=== PATIENT | female | born 1985 | race American Indian/Alaskan Native ===

== ENCOUNTER 2017-04-12 23:42 | Emergency (ER) | payer MEDICARE ==
[2017-04-13 00:21] LABS: INR 0.96 (0.87-1.13)
[2017-04-13 00:22] LABS: Partial Thromboplastin Time 29.6 Sec. (24.2-36.6)
[2017-04-13 00:32] LABS: Anion Gap 20 mmol/L; BUN/Creatinine Ratio 18.75; Blood Urea Nitrogen 15 mg/dL (7-17); Calcium 9.7 mg/dL (8.4-10.2); Carbon Dioxide 24 mmol/L (22-30); Chloride 103.2 mmol/L (98-107); Glucose 87 mg/dL (65-100); Sodium 143 mmol/L (137-145)
[2017-04-13 00:53] LABS: Basophils % (Auto) 0.7 % (0.0-1.8); Eosinophils % (Auto) 2.2 % (0.0-4.3); Hematocrit 39.9 % (30.3-42.9); Hemoglobin 13.5 gm/dl (10.1-14.3); Mean Corpuscular HGB Conc 34 % (30-34); Mean Corpuscular Hemoglobin 32 pg (28-32); Mean Corpuscular Volume 96 fl (79-97); Platelet Count 249 K/mm3 (140-440); Red Blood Count 4.17 M/mm3 (3.65-5.03); Red Cell Distribution Width 13.9 % (13.2-15.2); White Blood Count 7.2 K/mm3 (4.5-11.0)
[2017-04-13 05:17] VITALS: BP 146/91
[2017-04-13] MEDS ORDERED: NORCO 5/325 PO ONE (05:30)
--- NOTE | 2017-04-18 14:28 | ED Elopement Review ---
ED Pt Elopement review - Results review Lab results: Laboratory Tests 04/12/17 04/12/17 04/12/17 23:56 23:56 23:56 WBC 7.2 RBC 4.17 Hgb 13.5 Hct 39.9 MCV 96 MCH 32 MCHC 34 RDW 13.9 Plt Count 249 Lymph % (Auto) 49.9 H [place] % (Auto) 7.7 H Eos % (Auto) 2.2 Baso % (Auto) 0.7 Lymph # 3.6 Worth # 0.6 Eos # 0.2 Baso # 0.0 Seg Neutrophils % 39.5 L Seg Neutrophils # 2.8 PT 12.7 INR 0.96 APTT 29.6 Sodium 143 Potassium 4.0 Chloride 103.2 Carbon Dioxide 24 Anion Gap 20 BUN 15 Creatinine 0.8 Estimated GFR > 60 BUN/Creatinine Ratio 18.75 Glucose 87 Calcium 9.7 Troponin T < 0.010 HCG, Qual 04/13/17 04/13/17 04/13/17 00:00 03:18 06:03 WBC RBC Hgb Hct MCV MCH MCHC RDW Plt Count Lymph % (Auto) [place] % (Auto) Eos % (Auto) Baso % (Auto) Lymph # [place] # Eos # Baso # Seg Neutrophils % Seg Neutrophils # PT INR APTT Sodium Potassium Chloride Carbon Dioxide Anion Gap BUN Creatinine Estimated GFR BUN/Creatinine Ratio Glucose Calcium Troponin T < 0.010 < 0.010 HCG, Qual Negative - Call Back decision Pt Call Back Decision: No action required
== END 2017-04-13 06:33 ==
LOC: ED 23:42
DX: R07.9 Chest pain, unspecified (principal); M54.2 Cervicalgia; Z53.21 Procedure and treatment not carried out due to patient leaving prior to being seen by health care provider
CPT/HCPCS: 36415; 80048; 84484; 84703; 85025; 85610; 85730; 93005; 93010

== ENCOUNTER 2017-04-22 23:37 | Emergency (ER) | payer MEDICARE | END 2017-04-23 04:30 | disposition left against medical advice (07) | LOC: ED 23:37 | DX: R51 Headache (principal); Z53.21 Procedure and treatment not carried out due to patient leaving prior to being seen by health care provider ==

== ENCOUNTER 2017-07-10 16:45 | Emergency (ER) | payer MEDICARE ==
[2017-07-10 16:55] VITALS: BP 145/104
[2017-07-10 17:26] LABS: Eosinophils % (Auto) 2.3 % (0.0-4.3); Hematocrit 43.2 % (30.3-42.9); Hemoglobin 14.7 gm/dl (10.1-14.3); Mean Corpuscular HGB Conc 34 % (30-34); Mean Corpuscular Hemoglobin 32 pg (28-32); Mean Corpuscular Volume 94 fl (79-97); Platelet Count 323 K/mm3 (140-440); Red Blood Count 4.58 M/mm3 (3.65-5.03); Red Cell Distribution Width 13.1 % (13.2-15.2); White Blood Count 6.1 K/mm3 (4.5-11.0)
[2017-07-10 17:39] LABS: Bacteria,Urine 1+ /HPF (Negative); Bilirubin,Urine NEG (Negative); Blood,Urine NEG (Negative); Ketones,Urine NEG (Negative); Leukocyte Esterase,Urine NEG (Negative); Mucus,Urine FEW /HPF; Nitrite,Urine NEG (Negative); Protein,Urine <15 mg/dL mg/dL (Negative); Urobilinogen,Urine < 2.0 mg/dL (<2.0)
[2017-07-10 17:40] LABS: Alanine Aminotransferase 13 units/L (7-56); Albumin 4.7 g/dL (3.9-5); Albumin/Globulin Ratio 1.5 %; Alkaline Phosphatase 91 units/L (35-129); Anion Gap 18 mmol/L; Blood Urea Nitrogen 12 mg/dL (7-17); Calcium 9.4 mg/dL (8.4-10.2); Carbon Dioxide 21 mmol/L (22-30); Chloride 106.9 mmol/L (98-107); Glucose 89 mg/dL (65-100); Lipase 137 units/L (13-60); Potassium 4.3 mmol/L (3.6-5.0); Sodium 142 mmol/L (137-145); Total Protein 7.9 g/dL (6.3-8.2)
[2017-07-10] MEDS ORDERED: DILAUDID IM ONE (18:51)
[2017-07-10] MEDS ORDERED: ZOFRAN IM ONE (18:57)
--- NOTE | 2017-07-10 19:03 | Emergency Department Report ---
HPI - General Chief Complaint: Abdominal Pain Time Seen by Provider: 07/10/17 18:50 - HPI HPI: 32-year-old -[place] female, presents to ED with epigastric discomfort, nausea, vomiting 3 today patient had had several similar episodes in the past. ED Past Medical Hx - Past Medical History Hx Hypertension: Yes Hx Diabetes: Yes (NIDDM) Hx GERD: Yes Hx Seizures: Yes Hx Kidney Stones: Yes Hx Psychiatric Treatment: Yes (BiPolar, Anxiety, Depression) Additional medical history: pancreatitis - Surgical History Additional Surgical History: Left little finger, Left Fallopian tube, - Social History Smoking Status: Current Every Day Smoker Substance Use Type: None - Medications Home Medications: Home Medications Medication Instructions Recorded Confirmed Last Taken Type Ciprofloxacin HCl [Ciprofloxacin 500 mg PO Q12H #14 tab 07/10/17 Unknown Rx TAB] Dicyclomine [Bentyl] 20 mg PO QID #20 tablet 07/10/17 Unknown Rx ED Review of Systems ROS: Stated complaint: PANCREATITIS Other details as noted in HPI Physical Exam - Physical Exam Vital Signs: Vital Signs 07/10/17 16:52 Temperature 97.9 F Pulse Rate 89 Respiratory 17 Rate Blood Pressure 145/104 O2 Sat by Pulse 100 Oximetry Physical Exam: GENERAL: The patient is well-developed well-nourished female HEENT: Normocephalic. Atraumatic. Extraocular motions are intact. Patient has moist mucous membranes. NECK: Supple. No meningitic signs are noted. There is no adenopathy noted. CHEST/LUNGS: Clear to auscultation. There is no respiratory distress noted. HEART/CARDIOVASCULAR: Regular. There is no tachycardia. There is no gallop rub or murmur. ABDOMEN: Abdomen is soft, nontender. Patient has normal bowel sounds. There is no abdominal distention. SKIN: There is no rash. There is no edema. There is no diaphoresis. There are abrasions overlying the fingers of the right hand. No lacerations NEURO: The patient is awake, alert, and oriented. The patient is cooperative. The patient has no focal neurologic deficits. The patient has normal speech and gait. Cranial nerves II through XII grossly intact, no drift. Negative Romberg ED Course Vital Signs 07/10/17 16:52 Temperature 97.9 F Pulse Rate 89 Respiratory 17 Rate Blood Pressure 145/104 O2 Sat by Pulse 100 Oximetry ED Medical Decision Making - Lab Data Result diagrams: 07/10/17 17:06 07/10/17 17:06 Critical care attestation.: If time is entered above; I have spent that time in minutes in the direct care of this critically ill patient, excluding procedure time. ED Disposition Clinical Impression: Abdominal pain Qualifiers: Abdominal location: generalized Qualified Code(s): R10.84 - Generalized abdominal pain UTI (urinary tract infection) Qualifiers: Urinary tract infection type: acute cystitis Hematuria presence: without hematuria Qualified Code(s): N30.00 - Acute cystitis without hematuria Disposition: - TO HOME OR SELFCARE Is pt being admited?: No Does the pt Need Aspirin: No Condition: Stable Instructions: Abdominal Pain (ED) Prescriptions: Ciprofloxacin HCl [Ciprofloxacin TAB] 500 mg PO Q12H #14 tab Dicyclomine [Bentyl] 20 mg PO QID #20 tablet Referrals: PRIMARY CARE [Primary Care Provider] - 3-5 Days
== END 2017-07-10 19:24 | disposition home or self-care (01) ==
LOC: ED 16:45
DX: N39.0 Urinary tract infection, site not specified (principal); E11.9 Type 2 diabetes mellitus without complications; K21.9 Gastro-esophageal reflux disease without esophagitis; F17.210 Nicotine dependence, cigarettes, uncomplicated
CPT/HCPCS: 36415; 80053; 81001; 83690; 84703; 85025; 96372; 99283; J1170; J2405

== ENCOUNTER 2017-07-13 01:40 | Emergency (ER) | payer MEDICARE ==
[2017-07-13 02:48] LABS: Basophils % (Auto) 1.3 % (0.0-1.8); Eosinophils % (Auto) 2.8 % (0.0-4.3); Hematocrit 43.9 % (30.3-42.9); Hemoglobin 15.1 gm/dl (10.1-14.3); Mean Corpuscular HGB Conc 35 % (30-34); Mean Corpuscular Hemoglobin 32 pg (28-32); Mean Corpuscular Volume 94 fl (79-97); Platelet Count 333 K/mm3 (140-440); Red Blood Count 4.68 M/mm3 (3.65-5.03); White Blood Count 7.4 K/mm3 (4.5-11.0)
[2017-07-13 03:11] LABS: Alanine Aminotransferase 16 units/L (7-56); Albumin 4.7 g/dL (3.9-5); Albumin/Globulin Ratio 1.4 %; Alkaline Phosphatase 89 units/L (35-129); Anion Gap 21 mmol/L; BUN/Creatinine Ratio 14.28; Blood Urea Nitrogen 10 mg/dL (7-17); Carbon Dioxide 21 mmol/L (22-30); Chloride 103.1 mmol/L (98-107); Glucose 90 mg/dL (65-100); Lipase 134 units/L (13-60); Potassium 3.9 mmol/L (3.6-5.0); Sodium 141 mmol/L (137-145)
[2017-07-13 05:25] LABS: Bacteria,Urine 1+ /HPF (Negative); Bilirubin,Urine NEG (Negative); Blood,Urine NEG (Negative); Ketones,Urine NEG (Negative); Leukocyte Esterase,Urine TR (Negative); Mucus,Urine FEW /HPF; Nitrite,Urine NEG (Negative); Protein,Urine <15 mg/dL mg/dL (Negative); Urobilinogen,Urine < 2.0 mg/dL (<2.0)
[2017-07-13 09:36] VITALS: BP 139/94
--- NOTE | 2017-07-13 10:17 | Emergency Department Report ---
ED Abdominal Pain HPI - General Chief Complaint: Abdominal Pain Stated Complaint: CP/ABD PAIN/VOMITING Time Seen by Provider: 07/13/17 10:16 Source: patient Mode of arrival: Ambulatory Limitations: No Limitations - History of Present Illness Initial Comments: Patient gives an unfocused and somewhat inaccurate history. She tells me that she's been having abdominal pain since yesterday. However as I reminded her that she was here on July 10 for similar complaints, the patient told me that in addition she was admitted to [facility] for the same complaint approximately one week ago. She stated she had endoscopy and imaging of her abdomen which did not show anything specific. She returns today with similar complaints of left upper quadrant pain. She states that she has vomited 3 times over the last 24 hours without any signs of hematemesis. She denied melena. She denied fever or chills. Apparently she has been actually having these symptoms for more than 2 weeks perhaps longer. She states she was seen by her primary care physician who told her to go to the ER because she had an elevated pancreas enzyme. She denies history of gallbladder disease. She states she has never been referred to a calibration specialist. MD Complaint: abdominal pain -: week(s) Location: [facility] Radiation: none Migration to: no migration Severity scale (0 -10): 7 Quality: aching Consistency: intermittent Improves With: nothing Worsens With: nothing Associated Symptoms: denies other symptoms (except as above described) - Related Data Previous Rx's Medication Instructions Recorded Last Taken Type Ciprofloxacin HCl [Ciprofloxacin 500 mg PO Q12H #14 tab 07/10/17 Unknown Rx TAB] Dicyclomine [Bentyl] 20 mg PO QID #20 tablet 07/10/17 Unknown Rx HYDROcodone/APAP 5-325 [[place] 1 each PO Q6HR PRN #10 tablet 07/13/17 Unknown Rx 5/325] Lansoprazole [Prevacid] 15 mg PO BID #30 cap 07/13/17 Unknown Rx Ondansetron [Zofran Odt] 4 mg PO Q6H PRN #10 tab.rapdis 07/13/17 Unknown Rx Allergies Allergy/AdvReac Type Severity Reaction Status Date / Time buprenorphine HCl Allergy Swelling Verified 04/12/17 23:53 [From Buprenex] tramadol Allergy Swelling Verified 04/12/17 23:53 ED Review of Systems ROS: Stated complaint: CP/ABD PAIN/VOMITING Other details as noted in HPI Constitutional: denies: chills, fever Eyes: denies: eye pain, eye discharge, vision change ENT: denies: ear pain, throat pain Respiratory: denies: cough, shortness of breath, wheezing Cardiovascular: denies: chest pain, palpitations Endocrine: no symptoms reported Gastrointestinal: as per HPI, abdominal pain, nausea, vomiting. denies: diarrhea Genitourinary: denies: urgency, dysuria, discharge Musculoskeletal: denies: back pain, joint swelling, arthralgia Skin: denies: rash, lesions Neurological: denies: headache, weakness, paresthesias Psychiatric: denies: anxiety, depression Hematological/Lymphatic: denies: easy bleeding, easy bruising ED Past Medical Hx - Past Medical History Hx Hypertension: Yes Hx Diabetes: Yes (NIDDM) Hx GERD: Yes Hx Seizures: Yes Hx Kidney Stones: Yes Hx Psychiatric Treatment: Yes (BiPolar, Anxiety, Depression) Additional medical history: pancreatitis - Surgical History Additional Surgical History: Left little finger, Left Fallopian tube, - Social History Smoking Status: Current Every Day Smoker Substance Use Type: Alcohol - Medications Home Medications: Home Medications Medication Instructions Recorded Confirmed Last Taken Type Ciprofloxacin HCl [Ciprofloxacin 500 mg PO Q12H #14 tab 07/10/17 Unknown Rx TAB] Dicyclomine [Bentyl] 20 mg PO QID #20 tablet 07/10/17 Unknown Rx HYDROcodone/APAP 5-325 [[place] 1 each PO Q6HR PRN #10 tablet 07/13/17 Unknown Rx 5/325] Lansoprazole [Prevacid] 15 mg PO BID #30 cap 07/13/17 Unknown Rx Ondansetron [Zofran Odt] 4 mg PO Q6H PRN #10 tab.rapdis 07/13/17 Unknown Rx ED Physical Exam - General Limitations: No Limitations General appearance: alert, in no apparent distress - Head Head exam: Present: atraumatic, normocephalic - Eye Eye exam: Present: normal appearance. Absent: scleral icterus - ENT ENT exam: Present: mucous membranes moist - Neck Neck exam: Present: normal inspection - Respiratory Respiratory exam: Present: normal lung sounds bilaterally. Absent: respiratory distress - Cardiovascular Cardiovascular Exam: Present: regular rate, normal rhythm. Absent: systolic murmur, diastolic murmur, rubs, gallop - GI/Abdominal GI/Abdominal exam: Present: soft, tenderness (minimal poorly localized discomfort to palpation epigastric area), normal bowel sounds. Absent: distended, guarding, rebound, rigid, organomegaly, mass, bruit, pulsatile mass, hernia - Extremities Exam Extremities exam: Present: normal inspection - Back Exam Back exam: Present: normal inspection - Neurological Exam Neurological exam: Present: alert, oriented X3, CN II-XII intact. Absent: motor sensory deficit - Psychiatric Psychiatric exam: Present: normal affect, normal mood - Skin Skin exam: Present: warm, dry, intact, normal color. Absent: rash ED Course Vital Signs 07/13/17 07/13/17 07/13/17 02:16 04:38 09:35 Temperature 98.2 F Pulse Rate 116 H 116 H 96 H Respiratory 16 18 16 Rate Blood Pressure 155/106 137/96 Blood Pressure 139/94 [Left] O2 Sat by Pulse 99 100 99 Oximetry - Reevaluation(s) Reevaluation #1: It is noted that the patient's allergies to raise the spectrum of chronic pain disorder. 07/13/17 11:28 ED Medical Decision Making - Lab Data Result diagrams: 07/13/17 02:32 07/13/17 02:32 Laboratory Results - last 24 hr 07/13/17 07/13/17 07/13/17 02:32 02:32 04:40 WBC 7.4 RBC 4.68 Hgb 15.1 H Hct 43.9 H MCV 94 MCH 32 MCHC 35 H RDW 13.0 L Plt Count 333 Lymph % (Auto) 53.7 H [place] % (Auto) 5.2 Eos % (Auto) 2.8 Baso % (Auto) 1.3 Lymph # 3.9 [place] # 0.4 Eos # 0.2 Baso # 0.1 Seg Neutrophils % 37.0 L Seg Neutrophils # 2.7 Sodium 141 Potassium 3.9 Chloride 103.1 Carbon Dioxide 21 L Anion Gap 21 BUN 10 Creatinine 0.7 Estimated GFR > 60 BUN/Creatinine Ratio 14.28 Glucose 90 Calcium 10.0 Total Bilirubin 0.20 AST 14 ALT 16 Alkaline Phosphatase 89 Troponin T < 0.010 Total Protein 8.0 Albumin 4.7 Albumin/Globulin Ratio 1.4 Lipase 134 H Urine Color Straw Urine Turbidity Clear Urine pH 6.0 Ur Specific [place] 1.010 Urine Protein <15 mg/dl Urine Glucose (UA) Neg Urine Ketones Neg Urine Blood Neg Urine Nitrite Neg Urine Bilirubin Neg Urine Urobilinogen < 2.0 Ur Leukocyte Esterase Tr Urine WBC (Auto) 4.0 Urine RBC (Auto) 1.0 U Epithel Cells (Auto) 8.0 Urine Bacteria (Auto) 1+ Urine Mucus Few Urine HCG, Qual Negative 07/13/17 05:36 WBC RBC Hgb Hct MCV MCH MCHC RDW Plt Count Lymph % (Auto) [place] % (Auto) Eos % (Auto) Baso % (Auto) Lymph # [place] # Eos # Baso # Seg Neutrophils % Seg Neutrophils # Sodium Potassium Chloride Carbon Dioxide Anion Gap BUN Creatinine Estimated GFR BUN/Creatinine Ratio Glucose Calcium Total Bilirubin AST ALT Alkaline Phosphatase Troponin T < 0.010 Total Protein Albumin Albumin/Globulin Ratio Lipase Urine Color Urine Turbidity Urine pH Ur Specific [place] Urine Protein Urine Glucose (UA) Urine Ketones Urine Blood Urine Nitrite Urine Bilirubin Urine Urobilinogen Ur Leukocyte Esterase Urine WBC (Auto) Urine RBC (Auto) U Epithel Cells (Auto) Urine Bacteria (Auto) Urine Mucus Urine HCG, Qual - EKG Data -: EKG Interpreted by Fl EKG shows normal: sinus rhythm, axis, intervals, QRS complexes - EKG Data Interpretation: nonspecific ST-T wave brittney (there are nonspecific inferolateral changes are not diagnostic of ischemia) - Radiology Data I do not see any indications for further imaging or workup at this time. The minimally elevated lipase is fairly nonspecific. The patient will be referred to [facility] and given a prescription for analgesia and a proton inhibitor/ antiemetic. Critical care attestation.: If time is entered above; I have spent that time in minutes in the direct care of this critically ill patient, excluding procedure time. ED Disposition Clinical Impression: Abdominal pain Qualifiers: Abdominal location: epigastric Qualified Code(s): R10.13 - Epigastric pain Disposition: - TO HOME OR SELFCARE Is pt being admited?: No Does the pt Need Aspirin: No Condition: Stable Instructions: Abdominal Pain (ED) Additional Instructions: Return any acute change or problem as needed. Follow-up with your primary care provider and gastroenterology. See referral. Prescriptions: HYDROcodone/APAP 5-325 [[place] 5/325] 1 each PO Q6HR PRN #10 tablet PRN Reason: Pain Lansoprazole [Prevacid] 15 mg PO BID #30 cap Ondansetron [Zofran Odt] 4 mg PO Q6H PRN #10 tab.rapdis PRN Reason: Nausea Referrals: RYLEY ZHENG MD [Primary Care Provider] - 3-5 Days [facility] [Provider Group] - 3-5 Days Time of Disposition: 11:26
[2017-07-13] MEDS ORDERED: MORPHINE IM ONE (11:15)
[2017-07-13] MEDS ORDERED: ZOFRAN ODT PO ONE (11:15)
== END 2017-07-13 11:40 | disposition home or self-care (01) ==
LOC: ED 01:40
DX: R10.12 Left upper quadrant pain (principal); R11.10 Vomiting, unspecified; I10 Essential (primary) hypertension; E11.9 Type 2 diabetes mellitus without complications; K21.9 Gastro-esophageal reflux disease without esophagitis; F17.210 Nicotine dependence, cigarettes, uncomplicated; Z88.8 Allergy status to other drugs, medicaments and biological substances
CPT/HCPCS: 36415; 80053; 81001; 81025; 83690; 84484; 85025; 93005; 93010; 96372; 99284; J2270; Q0162

== ENCOUNTER 2017-08-11 21:35 | Emergency (ER) | payer MEDICARE | END 2017-08-11 22:55 | disposition left against medical advice (07) | LOC: ED 21:35 | DX: K85.90 Acute pancreatitis without necrosis or infection, unspecified (principal); Z53.21 Procedure and treatment not carried out due to patient leaving prior to being seen by health care provider ==

== ENCOUNTER 2017-08-14 08:18 | Emergency (ER) | payer MEDICARE ==
[2017-08-14 10:17] LABS: Hematocrit 39.5 % (30.3-42.9); Hemoglobin 13.7 gm/dl (10.1-14.3); Mean Corpuscular HGB Conc 35 % (30-34); Mean Corpuscular Hemoglobin 33 pg (28-32); Mean Corpuscular Volume 94 fl (79-97); Platelet Count 285 K/mm3 (140-440); Red Blood Count 4.21 M/mm3 (3.65-5.03); Red Cell Distribution Width 13.2 % (13.2-15.2); White Blood Count 5.7 K/mm3 (4.5-11.0)
[2017-08-14 10:18] LABS: Anion Gap 17 mmol/L; Blood Urea Nitrogen 7 mg/dL (7-17); Calcium 8.9 mg/dL (8.4-10.2); Carbon Dioxide 23 mmol/L (22-30); Chloride 102.1 mmol/L (98-107); Glucose 106 mg/dL (65-100); Potassium 4.1 mmol/L (3.6-5.0); Sodium 138 mmol/L (137-145)
[2017-08-14] MEDS ORDERED: NORCO 10/325 PO ONE (10:42)
--- NOTE | 2017-08-14 10:42 | Emergency Department Report ---
ED General Adult HPI - General Chief complaint: Seizure Stated complaint: SEIZURE, AND CHEST PAIN Time Seen by Provider: 08/14/17 10:03 Source: patient Mode of arrival: Ambulatory Limitations: No Limitations - History of Present Illness Initial comments: Patient is a 32-year-old female past medical history of epilepsy who presents status post seizure. Patient states that she had a seizure around 3 AM this morning. She states that she didn't get enough sleep for the last couple days and she was afraid to go to sleep because she might have a seizure. Seizure occurred for a non-witnessed amount time. It was not witnessed by anyone. Patient is not postictal. She states that she has some head and chest pain. I had the chest pains is 6 out of 10 moving makes it worse and nothing makes it better. As an achy type of pain that does not radiate. Patient denies having any nausea vomiting or fevers. - Related Data Home Medications Medication Instructions Recorded Confirmed Last Taken ALPRAZolam [Xanax TAB] 1 mg PO TID PRN 08/14/17 08/14/17 08/13/17 Amitriptyline [Elavil] 100 mg PO HS 08/14/17 08/14/17 08/11/17 Duloxetine HCl [Cymbalta] 60 mg PO QAM 08/14/17 08/14/17 08/13/17 Lurasidone HCl [Latuda] 80 mg PO HS 08/14/17 08/14/17 08/13/17 Phenytoin [Dilantin] 100 mg PO TID 08/14/17 08/14/17 08/13/17 Topiramate [Topamax] 100 mg PO BID 08/14/17 08/14/17 08/13/17 lamoTRIgine [LaMICtal] 150 mg PO BID 08/14/17 08/14/17 08/13/17 metFORMIN XR [Glucophage XR] 500 mg PO BID 08/14/17 08/14/17 08/13/17 Allergies Allergy/AdvReac Type Severity Reaction Status Date / Time buprenorphine HCl Allergy Swelling Verified 04/12/17 23:53 [From Buprenex] tramadol Allergy Swelling Verified 04/12/17 23:53 ED Review of Systems ROS: Stated complaint: SEIZURE, AND CHEST PAIN Other details as noted in HPI Constitutional: denies: chills, fever Eyes: denies: eye pain, eye discharge, vision change ENT: denies: ear pain, throat pain Respiratory: denies: cough, shortness of breath, wheezing Cardiovascular: chest pain. denies: palpitations Endocrine: no symptoms reported Gastrointestinal: denies: abdominal pain, nausea, diarrhea Genitourinary: denies: urgency, dysuria, discharge Musculoskeletal: denies: back pain, joint swelling, arthralgia Skin: denies: rash, lesions Neurological: headache, other (seizures ). denies: weakness, paresthesias Psychiatric: denies: anxiety, depression Hematological/Lymphatic: denies: easy bleeding, easy bruising ED Past Medical Hx - Past Medical History Hx Hypertension: Yes Hx Diabetes: Yes (NIDDM) Hx GERD: Yes Hx Seizures: Yes Hx Kidney Stones: Yes Hx Psychiatric Treatment: Yes (BiPolar, Anxiety, Depression) Additional medical history: pancreatitis - Surgical History Past Surgical History?: Yes Additional Surgical History: Left little finger, Left Fallopian tube, - Social History Smoking Status: Never Smoker Substance Use Type: None - Medications Home Medications: Home Medications Medication Instructions Recorded Confirmed Last Taken Type ALPRAZolam [Xanax TAB] 1 mg PO TID PRN 08/14/17 08/14/17 08/13/17 History Amitriptyline [Elavil] 100 mg PO HS 08/14/17 08/14/17 08/11/17 History Duloxetine HCl [Cymbalta] 60 mg PO QAM 08/14/17 08/14/17 08/13/17 History Lurasidone HCl [Latuda] 80 mg PO HS 08/14/17 08/14/17 08/13/17 History Phenytoin [Dilantin] 100 mg PO TID 08/14/17 08/14/17 08/13/17 History Topiramate [Topamax] 100 mg PO BID 08/14/17 08/14/17 08/13/17 History lamoTRIgine [LaMICtal] 150 mg PO BID 08/14/17 08/14/17 08/13/17 History metFORMIN XR [Glucophage XR] 500 mg PO BID 08/14/17 08/14/17 08/13/17 History ED Physical Exam - General Limitations: No Limitations General appearance: alert, in no apparent distress - Head Head exam: Present: atraumatic, normocephalic - Eye Eye exam: Present: normal appearance - ENT ENT exam: Present: mucous membranes moist - Neck Neck exam: Present: normal inspection - Respiratory Respiratory exam: Present: normal lung sounds bilaterally. Absent: respiratory distress - Cardiovascular Cardiovascular Exam: Present: regular rate, normal rhythm. Absent: systolic murmur, diastolic murmur, rubs, gallop - GI/Abdominal GI/Abdominal exam: Present: soft, normal bowel sounds - Extremities Exam Extremities exam: Present: normal inspection - Back Exam Back exam: Present: normal inspection - Neurological Exam Neurological exam: Present: alert, oriented X3 - Psychiatric Psychiatric exam: Present: normal affect, normal mood - Skin Skin exam: Present: warm, dry, intact, normal color. Absent: rash ED Course Vital Signs 08/14/17 08/14/17 08/14/17 08:48 09:29 09:30 Temperature 97.9 F Pulse Rate 108 H 96 H Respiratory 18 16 Rate Blood Pressure 138/87 O2 Sat by Pulse 100 100 100 Oximetry 08/14/17 08/14/17 08/14/17 09:37 09:40 09:46 Temperature 97.5 F L Pulse Rate 91 H Respiratory 16 17 Rate Blood Pressure O2 Sat by Pulse 100 99 Oximetry 08/14/17 08/14/17 08/14/17 10:00 10:16 10:30 Temperature 98.1 F Pulse Rate 93 H 97 H 94 H Respiratory 16 20 16 Rate Blood Pressure 145/92 145/92 145/92 O2 Sat by Pulse Oximetry 08/14/17 10:46 Temperature Pulse Rate 91 H Respiratory 18 Rate Blood Pressure 145/92 O2 Sat by Pulse Oximetry ED Medical Decision Making - Lab Data Result diagrams: 08/14/17 09:33 08/14/17 09:33 Lab Results 08/14/17 08/14/17 08/14/17 Range/Units 08:59 09:33 09:33 WBC 5.7 (4.5-11.0) K/mm3 RBC 4.21 (3.65-5.03) M/mm3 Hgb 13.7 (10.1-14.3) gm/dl Hct 39.5 (30.3-42.9) % MCV 94 (79-97) fl MCH 33 H (28-32) pg MCHC 35 H (30-34) % RDW 13.2 (13.2-15.2) % Plt Count 285 (140-440) K/mm3 Lymph % (Auto) Strategy Specialist Add Manual Diff Complete Total Counted 100 Seg Neutrophils % Strategy Specialist Seg Neuts % (Manual) 38.0 L (40.0-70.0) % Band Neutrophils % 0 % Lymphocytes % (Manual) 55.0 H (13.4-35.0) % Reactive Lymphs % (Man) 1.0 % Monocytes % (Manual) 5.0 (0.0-7.3) % Eosinophils % (Manual) 1.0 (0.0-4.3) % Basophils % (Manual) 0 (0.0-1.8) % Metamyelocytes % 0 % Myelocytes % 0 % Promyelocytes % 0 % Blast Cells % 0 % Nucleated RBC % Not Reportable Seg Neutrophils # Man 2.2 (1.8-7.7) K/mm3 Band Neutrophils # 0.0 K/mm3 Lymphocytes # (Manual) 3.1 (1.2-5.4) K/mm3 Abs React Lymphs (Man) 0.1 K/mm3 Monocytes # (Manual) 0.3 (0.0-0.8) K/mm3 Eosinophils # (Manual) 0.1 (0.0-0.4) K/mm3 Basophils # (Manual) 0.0 (0.0-0.1) K/mm3 Metamyelocytes # 0.0 K/mm3 Myelocytes # 0.0 K/mm3 Promyelocytes # 0.0 K/mm3 Blast Cells # 0.0 K/mm3 WBC Morphology Not Reportable Hypersegmented Neuts Not Reportable Hyposegmented Neuts Not Reportable Hypogranular Neuts Not Reportable Smudge Cells Not Reportable Toxic Granulation Not Reportable Toxic Vacuolation Not Reportable Dohle Bodies Not Reportable Pelger-Huet Anomaly Not Reportable Galo Rods Not Reportable Platelet Estimate Appears normal Clumped Platelets Not Reportable Plt Clumps, EDTA Not Reportable Large Platelets Not Reportable Giant Platelets Rare Platelet Satelliting Not Reportable Plt Morphology Comment Not Reportable RBC Morphology Not Reportable Dimorphic RBCs Not Reportable Polychromasia Not Reportable Hypochromasia Not Reportable Poikilocytosis 1+ Anisocytosis 1+ Microcytosis Not Reportable Macrocytosis Not Reportable Spherocytes Not Reportable Pappenheimer Bodies Not Reportable Sickle Cells Not Reportable Target Cells Not Reportable Tear Drop Cells Not Reportable Ovalocytes Not Reportable Helmet Cells Not Reportable [place] Bodies Not Reportable [place] Rings Not Reportable [place] Cells 1+ Bite Cells Not Reportable Crenated Cell Few Elliptocytes Not Reportable Acanthocytes (Spur) Not Reportable Rouleaux Not Reportable Hemoglobin C Crystals Not Reportable Schistocytes Not Reportable Malaria parasites Not Reportable Maximiliano Bodies Not Reportable Hem Pathologist Commnt No Sodium 138 (137-145) mmol/L Potassium 4.1 (3.6-5.0) mmol/L Chloride 102.1 (98-107) mmol/L Carbon Dioxide 23 (22-30) mmol/L Anion Gap 17 mmol/L BUN 7 (7-17) mg/dL Creatinine 0.7 (0.7-1.2) mg/dL Estimated GFR > 60 ml/min BUN/Creatinine Ratio 10.00 % Glucose 106 H (65-100) mg/dL POC Glucose 102 (70-105) Calcium 8.9 (8.4-10.2) mg/dL HCG, Qual (Negative) 08/14/17 Range/Units 09:33 WBC (4.5-11.0) K/mm3 RBC (3.65-5.03) M/mm3 Hgb (10.1-14.3) gm/dl Hct (30.3-42.9) % MCV (79-97) fl MCH (28-32) pg MCHC (30-34) % RDW (13.2-15.2) % Plt Count (140-440) K/mm3 Lymph % (Auto) Add Manual Diff Total Counted Seg Neutrophils % Seg Neuts % (Manual) (40.0-70.0) % Band Neutrophils % % Lymphocytes % (Manual) (13.4-35.0) % Reactive Lymphs % (Man) % Monocytes % (Manual) (0.0-7.3) % Eosinophils % (Manual) (0.0-4.3) % Basophils % (Manual) (0.0-1.8) % Metamyelocytes % % Myelocytes % % Promyelocytes % % Blast Cells % % Nucleated RBC % Seg Neutrophils # Man (1.8-7.7) K/mm3 Band Neutrophils # K/mm3 Lymphocytes # (Manual) (1.2-5.4) K/mm3 Abs React Lymphs (Man) K/mm3 Monocytes # (Manual) (0.0-0.8) K/mm3 Eosinophils # (Manual) (0.0-0.4) K/mm3 Basophils # (Manual) (0.0-0.1) K/mm3 Metamyelocytes # K/mm3 Myelocytes # K/mm3 Promyelocytes # K/mm3 Blast Cells # K/mm3 WBC Morphology Hypersegmented Neuts Hyposegmented Neuts Hypogranular Neuts Smudge Cells Toxic Granulation Toxic Vacuolation Dohle Bodies Pelger-Huet Anomaly Galo Rods Platelet Estimate Clumped Platelets Plt Clumps, EDTA Large Platelets Giant Platelets Platelet Satelliting Plt Morphology Comment RBC Morphology Dimorphic RBCs Polychromasia Hypochromasia Poikilocytosis Anisocytosis Microcytosis Macrocytosis Spherocytes Pappenheimer Bodies Sickle Cells Target Cells Tear Drop Cells Ovalocytes Helmet Cells [place] Bodies [place] Rings [place] Cells Bite Cells Crenated Cell Elliptocytes Acanthocytes (Spur) Rouleaux Hemoglobin C Crystals Schistocytes Malaria parasites Maximiliano Bodies Hem Pathologist Commnt Sodium (137-145) mmol/L Potassium (3.6-5.0) mmol/L Chloride (98-107) mmol/L Carbon Dioxide (22-30) mmol/L Anion Gap mmol/L BUN (7-17) mg/dL Creatinine (0.7-1.2) mg/dL Estimated GFR ml/min BUN/Creatinine Ratio % Glucose (65-100) mg/dL POC Glucose (70-105) Calcium (8.4-10.2) mg/dL HCG, Qual Negative (Negative) - EKG Data -: EKG Interpreted by Wy - EKG Data 08/14/17 11:16 EKG shows normal sinus rhythm normal axis and no ST segment elevation or T-wave inversion - Medical Decision Making Chief medical diagnosis: Epilepsy Differential diagnosis: Non-adherance to medical regimen, metablolic abnormality , arrythmia I will get CBC, CMP, EKG and oral analgesic pain medication Patient's seizure is most likely due to her not getting enough sleep. Patient is not having any urinary signs or signs of infection she does not need a UA. Patient's laboratory finding is unremarkable I will send patient home. Agents pain is better after oral analgesic pain medication. Critical care attestation.: If time is entered above; I have spent that time in minutes in the direct care of this critically ill patient, excluding procedure time. ED Disposition Clinical Impression: Seizures Epilepsy Qualifiers: Epilepsy type: unspecified Intractability: not intractable Status epilepticus: without status epilepticus Qualified Code(s): G40.909 - Epilepsy, unspecified, not intractable, without status epilepticus Disposition: - TO HOME OR SELFCARE Is pt being admited?: No Does the pt Need Aspirin: No Condition: Stable Instructions: Epilepsy (ED) Referrals: PRIMARY CARE, [Primary Care Provider] - 3-5 Days Forms: Accompanied Note
[2017-08-14 10:53] LABS: Basophils % (Manual) 0 % (0.0-1.8); Blastocytes % (Manual) 0 %
[2017-08-14 10:54] LABS: Anisocytosis 1+; Burr Cells 1+; Crenated RBC Few; Diff Status Complete; Giant Platelets Rare; Poikilocytosis 1+
[2017-08-14] MEDS ORDERED: MOTRIN PO ONE ×2 (11:10→11:59)
[2017-08-14 11:53] VITALS: BP 150/101
== END 2017-08-14 11:15 | disposition home or self-care (01) ==
LOC: ED 08:18
DX: G40.909 Epilepsy, unspecified, not intractable, without status epilepticus (principal); E11.9 Type 2 diabetes mellitus without complications; K21.9 Gastro-esophageal reflux disease without esophagitis; F31.9 Bipolar disorder, unspecified; F41.9 Anxiety disorder, unspecified; Z88.8 Allergy status to other drugs, medicaments and biological substances
CPT/HCPCS: 36415; 80048; 80185; 82962; 84703; 85007; 85025; 93005; 93010

== ENCOUNTER 2017-08-24 03:17 | Emergency (ER) | payer MEDICARE ==
[2017-08-24 03:26] VITALS: BP 114/76
[2017-08-24 04:31] LABS: Basophils % (Auto) 1.1 % (0.0-1.8); Eosinophils % (Auto) 3.6 % (0.0-4.3); Hematocrit 38.5 % (30.3-42.9); Hemoglobin 13.5 gm/dl (10.1-14.3); Mean Corpuscular HGB Conc 35 % (30-34); Mean Corpuscular Hemoglobin 33 pg (28-32); Mean Corpuscular Volume 93 fl (79-97); Platelet Count 229 K/mm3 (140-440); Red Blood Count 4.13 M/mm3 (3.65-5.03); Red Cell Distribution Width 13.5 % (13.2-15.2); White Blood Count 6.9 K/mm3 (4.5-11.0)
[2017-08-24 04:36] LABS: Anion Gap 16 mmol/L; BUN/Creatinine Ratio 10; Blood Urea Nitrogen 7 mg/dL (7-17); Calcium 9.5 mg/dL (8.4-10.2); Carbon Dioxide 23 mmol/L (22-30); Chloride 108.3 mmol/L (98-107); Glucose 118 mg/dL (65-100); Sodium 143 mmol/L (137-145)
== END 2017-08-24 05:25 | disposition left against medical advice (07) ==
LOC: ED 03:17
DX: R07.9 Chest pain, unspecified (principal); Z53.21 Procedure and treatment not carried out due to patient leaving prior to being seen by health care provider
CPT/HCPCS: 36415; 80048; 84484; 84703; 85025; 93005; 93010

== ENCOUNTER 2018-02-19 21:57 | Emergency (ER) | payer MEDICARE ==
[2018-02-20 00:30] LABS: Basophils # (Auto) 0.1 K/mm3 (0.0-0.1); Basophils % (Auto) 0.9 % (0.0-1.8); Eosinophils # (Auto) 0.1 K/mm3 (0.0-0.4); Eosinophils % (Auto) 1.8 % (0.0-4.3); Hematocrit 43.1 % (30.3-42.9); Hemoglobin 14.4 gm/dl (10.1-14.3); Lymphocytes # (Auto) 3.1 K/mm3 (1.2-5.4); Lymphocytes % (Auto) 46.1 % (13.4-35.0); Mean Corpuscular HGB Conc 33 % (30-34); Mean Corpuscular Hemoglobin 32 pg (28-32); Mean Corpuscular Volume 95 fl (79-97); Monocytes # (Auto) 0.5 K/mm3 (0.0-0.8); Monocytes % (Auto) 6.9 % (0.0-7.3); Platelet Count 296 K/mm3 (140-440); Red Blood Count 4.56 M/mm3 (3.65-5.03); Red Cell Distribution Width 14.1 % (13.2-15.2)
[2018-02-20 00:45] LABS: Alanine Aminotransferase 15 units/L (7-56); Albumin 4.4 g/dL (3.9-5); BUN/Creatinine Ratio 10; Blood Urea Nitrogen 10 mg/dL (7-17); Hemolysis Index 7; Lipase 77 units/L (13-60)
[2018-02-20 00:48] LABS: Bilirubin,Urine NEG (Negative); Blood,Urine LG (Negative); Color,Urine Red (Yellow); Urobilinogen,Urine < 2.0 mg/dL (<2.0)
[2018-02-20 00:50] LABS: RBC,Urine > 182.0 /HPF (0.0-6.0); WBC,Urine > 182.0 /HPF (0.0-6.0)
[2018-02-20] MEDS ORDERED: NACL 0.9% 1000 ML 1,000 ML IV ONE (02:40)
[2018-02-20] MEDS ORDERED: DILAUDID IV ONE ×2 (02:46→05:56)
[2018-02-20] MEDS ORDERED: ZOFRAN IV ONE (02:46)
[2018-02-20 02:56] VITALS: BP 165/111
--- NOTE | 2018-02-20 05:16 | Cat Scan Report ---
FINAL REPORT EXAM: CT ABDOMEN PELVIS W CON HISTORY: Abdominal pain. TECHNIQUE: Axial CT images of the abdomen and pelvis were obtained, following the administration of intravenous contrast. Delayed axial images and coronal and sagittal reformatted images were also obtained. No prior studies are available for comparison. FINDINGS: There is a 1.8 cm patchy enhancing lesion in the left lateral hepatic lobe, which appears low-attenuation relative to adjacent parenchyma on the delayed images. The biliary tree, gallbladder, pancreas, spleen, adrenal glands, and kidneys are unremarkable. There is no urinary tract obstruction. Evaluation of the bowel is limited due to lack of oral contrast. The stomach is partially contracted, not well evaluated. There is residual stool in the colon. There is no intestinal obstruction or free air. Of note, the appendix is normal. There is a tiny fat containing right periumbilical ventral hernia. The abdominal aorta is normal in caliber. There is no pathologic abdominal or pelvic lymphadenopathy. There is no free or loculated fluid collection. The uterus and adnexa demonstrate a grossly normal CT appearance for patient's age, with mild cystic changes seen in the left ovary. The urinary bladder is unremarkable. No discrete osseous abnormality is seen. There is minimal subsegmental dependent atelectasis. IMPRESSION: 1. No intestinal obstruction or free air. Normal CT appearance of the appendix. 2. 1.8 cm patchy enhancing lesion in the left lateral hepatic lobe, not fully characterized (but does not have typical CT features of hemangioma). MRI exam with and without contrast is suggested for further evaluation.
--- NOTE | 2018-02-20 05:33 | Emergency Department Report ---
HPI - General Chief Complaint: Abdominal Pain Time Seen by Provider: 02/20/18 02:25 - HPI HPI: 33-year-old -[place] female presents ED with epigastric area pain, 8/ 10 , burning/sharp without radiation. She denies history of pancreatitis and came to ED to make sure that she was not having a pancreatitis attack. Patient denies any fever, chills, night sweats. Patient also complained of mild burning on urination, no vaginal bleeding or discharge. ED Past Medical Hx - Past Medical History Hx Hypertension: Yes Hx Diabetes: Yes (NIDDM) Hx GERD: Yes Hx Seizures: Yes Hx Kidney Stones: Yes Hx Psychiatric Treatment: Yes (BiPolar, Anxiety, Depression) Additional medical history: pancreatitis - Surgical History Additional Surgical History: Left little finger, Left Fallopian tube, - Social History Smoking Status: Current Some Day Smoker Substance Use Type: None - Medications Home Medications: Home Medications Medication Instructions Recorded Confirmed Last Taken Type ALPRAZolam [Xanax TAB] 1 mg PO TID PRN 08/14/17 08/14/17 08/13/17 History Amitriptyline [Elavil] 100 mg PO HS 08/14/17 08/14/17 08/11/17 History Duloxetine HCl [Cymbalta] 60 mg PO QAM 08/14/17 08/14/17 08/13/17 History Lurasidone HCl [Latuda] 80 mg PO HS 08/14/17 08/14/17 08/13/17 History Phenytoin [Dilantin] 100 mg PO TID 08/14/17 08/14/17 08/13/17 History Topiramate [Topamax] 100 mg PO BID 08/14/17 08/14/17 08/13/17 History lamoTRIgine [LaMICtal] 150 mg PO BID 08/14/17 08/14/17 08/13/17 History metFORMIN XR [Glucophage XR] 500 mg PO BID 08/14/17 08/14/17 08/13/17 History Cephalexin [Keflex] 500 mg PO Q12HR #14 cap 02/20/18 Unknown Rx ED Review of Systems ROS: Stated complaint: H/A; ABD PAIN Other details as noted in HPI Comment: All other systems reviewed and negative Gastrointestinal: abdominal pain, nausea. denies: diarrhea, constipation Physical Exam - Physical Exam Vital Signs: Vital Signs 02/19/18 02/20/18 02/20/18 23:33 01:44 01:46 Temperature 99 F Pulse Rate 109 H Blood Pressure 132/81 174/111 O2 Sat by Pulse 96 99 97 Oximetry 02/20/18 02:00 Temperature Pulse Rate Blood Pressure 165/111 O2 Sat by Pulse 98 Oximetry Physical Exam: - Physical Exam Physical Exam: - General Limitations: No Limitations General appearance: alert, in no apparent distress. - Head Head exam: Present: atraumatic, normocephalic - Eye Eye exam: Present: normal appearance - ENT ENT exam: Present: mucous membranes moist - Neck Neck exam: Present: normal inspection - Respiratory Respiratory exam: Present: normal lung sounds bilaterally. Absent: respiratory distress - Cardiovascular Cardiovascular Exam: Present: normal rhythm, tachycardia. Absent: systolic murmur, diastolic murmur, rubs, gallop - GI/Abdominal GI/Abdominal exam: Present: soft, normal bowel sounds, mild tender to palpation right upper quadrant area - Extremities Exam Extremities exam: Present: normal inspection - Back Exam Back exam: Present: normal inspection - Neurological Exam Neurological exam: Present: alert, oriented X3 - Psychiatric Psychiatric exam: normal affect and mood - Skin Skin exam: Present: warm, dry, intact, normal color. Absent: rash ED Course Vital Signs 02/19/18 02/20/18 02/20/18 23:33 01:44 01:46 Temperature 99 F Pulse Rate 109 H Blood Pressure 132/81 174/111 O2 Sat by Pulse 96 99 97 Oximetry 02/20/18 02:00 Temperature Pulse Rate Blood Pressure 165/111 O2 Sat by Pulse 98 Oximetry ED Medical Decision Making - Lab Data Result diagrams: 02/19/18 23:40 02/19/18 23:40 Critical care attestation.: If time is entered above; I have spent that time in minutes in the direct care of this critically ill patient, excluding procedure time. ED Disposition Clinical Impression: Abdominal pain Qualifiers: Abdominal location: right upper quadrant Qualified Code(s): R10.11 - Right upper quadrant pain UTI (urinary tract infection) Qualifiers: Urinary tract infection type: acute cystitis Hematuria presence: without hematuria Qualified Code(s): N30.00 - Acute cystitis without hematuria Disposition: - TO HOME OR SELFCARE Is pt being admited?: No Does the pt Need Aspirin: No Condition: Stable Instructions: Abdominal Pain (ED) Prescriptions: Cephalexin [Keflex] 500 mg PO Q12HR #14 cap Referrals: MYLA SLOAN MD [Primary Care Provider] - 3-5 Days
[2018-02-20] MEDS ORDERED: TORADOL IV ONE (05:51)
[2018-02-20] MEDS ORDERED: DILAUDID ONE (05:58)
== END 2018-02-20 06:05 | disposition home or self-care (01) ==
LOC: ED 21:57
DX: N39.0 Urinary tract infection, site not specified (principal); R10.11 Right upper quadrant pain; I10 Essential (primary) hypertension; E11.9 Type 2 diabetes mellitus without complications; K21.9 Gastro-esophageal reflux disease without esophagitis; F31.9 Bipolar disorder, unspecified; F41.9 Anxiety disorder, unspecified; F17.200 Nicotine dependence, unspecified, uncomplicated; Z87.442 Personal history of urinary calculi
CPT/HCPCS: 36415; 74177; 80053; 81001; 83690; 84703; 85025; 96361; 96374; 96375; 96376; 99284; J1170; J1885; J2405; J7030; Q9967

== ENCOUNTER 2018-02-25 06:40 | Emergency (ER) | payer MEDICARE ==
[2018-02-25 07:32] LABS: Hematocrit 45.6 % (30.3-42.9); Hemoglobin 15.6 gm/dl (10.1-14.3); Mean Corpuscular HGB Conc 34 % (30-34); Mean Corpuscular Hemoglobin 32 pg (28-32); Mean Corpuscular Volume 93 fl (79-97); Platelet Count 354 K/mm3 (140-440); Red Blood Count 4.88 M/mm3 (3.65-5.03); Red Cell Distribution Width 14.1 % (13.2-15.2)
[2018-02-25 07:35] LABS: Bacteria,Urine 1+ /HPF (Negative); Bilirubin,Urine NEG (Negative); Blood,Urine NEG (Negative); Color,Urine Yellow (Yellow); Mucus,Urine FEW /HPF; Protein,Urine <15 mg/dL mg/dL (Negative); Urobilinogen,Urine < 2.0 mg/dL (<2.0)
[2018-02-25 07:41] LABS: Alanine Aminotransferase 18 units/L (7-56); Albumin 4.5 g/dL (3.9-5); BUN/Creatinine Ratio 13; Blood Urea Nitrogen 10 mg/dL (7-17); Calcium 9.8 mg/dL (8.4-10.2); Hemolysis Index 43
[2018-02-25 08:30] LABS: Anisocytosis 1+; Band Neutrophils # (Manual) 0.2 K/mm3; Basophils % (Manual) 0 % (0.0-1.8); Total Cells Counted 100
[2018-02-25 08:31] LABS: Large Platelets Rare; Platelet Estimate Consistent w Auto
[2018-02-25] MEDS ORDERED: ZOFRAN IV ONE (09:49)
[2018-02-25] MEDS ORDERED: NACL 0.9% 1000 ML 1,000 ML IV ONE (09:50)
[2018-02-25 09:51] VITALS: BP 150/99
[2018-02-25] MEDS ORDERED: SUBLIMAZE IV ONE (10:22)
--- NOTE | 2018-02-25 10:28 | Emergency Department Report ---
HPI - General Chief Complaint: Abdominal Pain Time Seen by Provider: 02/25/18 10:15 - HPI HPI: Room 8 The patient is a 33-year-old female presenting with a chief complaint of abdominal pain. The patient says she developed midepigastric abdominal pain starting last night at approximately 21:00. Patient states the pain is constant and stabbing in nature and feels like previous pulse pancreatitis. Patient denies diarrhea or fever. Patient admits to nausea and vomiting. The patient gives her pain score of 8/10 Location: Abdomen Duration: Constant since 21:00 Quality: Stabbing Severity: 8/10 Modifying factors: [see above] Context: [see above] Mode of transportation: [not driving] ED Past Medical Hx - Past Medical History Previous Medical History?: Yes Hx Hypertension: Yes Hx Diabetes: Yes (NIDDM) Hx GERD: Yes Hx Seizures: Yes Hx Kidney Stones: Yes Hx Psychiatric Treatment: Yes (BiPolar, Anxiety, Depression) Additional medical history: pancreatitis - Surgical History Past Surgical History?: Yes Additional Surgical History: pin and screw L 5th digit, L ectopic 2015 , D&C - Family History Family history: no significant - Social History Smoking Status: Current Every Day Smoker (1/2 pack per day) Substance Use Type: None (denies illicit drug use), Alcohol (none since 2017) - Medications Home Medications: Home Medications Medication Instructions Recorded Confirmed Last Taken Type ALPRAZolam [Xanax TAB] 1 mg PO TID PRN 08/14/17 08/14/17 08/13/17 History Amitriptyline [Elavil] 100 mg PO HS 08/14/17 08/14/17 08/11/17 History Duloxetine HCl [Cymbalta] 60 mg PO QAM 08/14/17 08/14/17 08/13/17 History Lurasidone HCl [Latuda] 80 mg PO HS 08/14/17 08/14/17 08/13/17 History Phenytoin [Dilantin] 100 mg PO TID 08/14/17 08/14/17 08/13/17 History Topiramate [Topamax] 100 mg PO BID 08/14/17 08/14/17 08/13/17 History lamoTRIgine [LaMICtal] 150 mg PO BID 08/14/17 08/14/17 08/13/17 History metFORMIN XR [Glucophage XR] 500 mg PO BID 08/14/17 08/14/17 08/13/17 History Cephalexin [Keflex] 500 mg PO Q12HR #14 cap 02/20/18 Unknown Rx Dicyclomine [Bentyl] 10 mg PO QID #30 capsule 02/20/18 Unknown Rx Famotidine [Pepcid] 20 mg PO BID #20 tablet 02/25/18 Unknown Rx HYDROcodone/APAP 5-325 [[place] 1 - 2 each PO Q6HR PRN #14 tablet 02/25/18 Unknown Rx 5/325] Promethazine [Phenergan TAB] 25 mg PO Q6HR PRN #20 tab 02/25/18 Unknown Rx Promethazine [Phenergan] 25 mg FL Q6HR PRN #5 supp.rect 02/25/18 Unknown Rx ED Review of Systems ROS: Stated complaint: PANCREATITIS FLARE UP/MIGRAINE Other details as noted in HPI Constitutional: denies: fever Gastrointestinal: abdominal pain, nausea, vomiting. denies: diarrhea Physical Exam - Physical Exam Vital Signs: Vital Signs 02/25/18 02/25/18 02/25/18 06:52 09:27 09:51 Temperature 98.1 F Pulse Rate 76 103 H Respiratory 18 18 Rate Blood Pressure 176/119 145/105 Blood Pressure 150/99 [Right] O2 Sat by Pulse 96 98 Oximetry Physical Exam: GENERAL: The patient is well-developed well-nourished female lying on stretcher not appearing to be in acute distress. [] HEENT: Normocephalic. Atraumatic. Extraocular motions are intact. Patient has moist mucous membranes. NECK: Supple. Trachea midline CHEST/LUNGS: Clear to auscultation. There is no respiratory distress noted. HEART/CARDIOVASCULAR: Regular. There is no tachycardia. There is no gallop rub or murmur. ABDOMEN: Abdomen is soft, with tenderness to palpation in the epigastric region. Patient has normal bowel sounds. There is no abdominal distention. SKIN: There is no rash. There is no edema. There is no diaphoresis. NEURO: The patient is awake, alert, and oriented. The patient is cooperative. The patient has normal speech MUSCULOSKELETAL: There is no evidence of acute injury. ED Course Vital Signs 02/25/18 02/25/18 02/25/18 06:52 09:27 09:51 Temperature 98.1 F Pulse Rate 76 103 H Respiratory 18 18 Rate Blood Pressure 176/119 145/105 Blood Pressure 150/99 [Right] O2 Sat by Pulse 96 98 Oximetry - Reevaluation(s) Reevaluation #1: 02/25/18 10:57 Patient states her pain is decreased to a 6/10. Labs were reviewed with the patient. The patient states she would prefer to go home when given the option of admission to the hospital for pain control. Patient advised to follow-up with her psychiatric assistant (Dr. Ray) ED Medical Decision Making - Lab Data Result diagrams: 02/25/18 07:06 02/25/18 07:06 Laboratory Tests 02/25/18 02/25/18 02/25/18 07:06 07:06 07:06 WBC 6.2 RBC 4.88 Hgb 15.6 H Hct 45.6 H MCV 93 MCH 32 MCHC 34 RDW 14.1 Plt Count 354 Lymph % (Auto) Log Yard Derrick Operator Add Manual Diff Complete Total Counted 100 Seg Neutrophils % Log Yard Derrick Operator Seg Neuts % (Manual) 30.0 L Band Neutrophils % 3.0 Lymphocytes % (Manual) 56.0 H Reactive Lymphs % (Man) 0 Monocytes % (Manual) 7.0 Eosinophils % (Manual) 4.0 Basophils % (Manual) 0 Metamyelocytes % 0 Myelocytes % 0 Promyelocytes % 0 Blast Cells % 0 Nucleated RBC % Not Reportable Seg Neutrophils # Man 1.9 Band Neutrophils # 0.2 Lymphocytes # (Manual) 3.5 Abs React Lymphs (Man) 0.0 Monocytes # (Manual) 0.4 Eosinophils # (Manual) 0.2 Basophils # (Manual) 0.0 Metamyelocytes # 0.0 Myelocytes # 0.0 Promyelocytes # 0.0 Blast Cells # 0.0 WBC Morphology Not Reportable Hypersegmented Neuts Not Reportable Hyposegmented Neuts Not Reportable Hypogranular Neuts Not Reportable Smudge Cells Not Reportable Toxic Granulation Not Reportable Toxic Vacuolation Not Reportable Dohle Bodies Not Reportable Pelger-Huet Anomaly Not Reportable Galo Rods Not Reportable Platelet Estimate Consistent w auto Clumped Platelets Not Reportable Plt Clumps, EDTA Not Reportable Large Platelets Rare Giant Platelets Not Reportable Platelet Satelliting Not Reportable Plt Morphology Comment Not Reportable RBC Morphology Not Reportable Dimorphic RBCs Not Reportable Polychromasia Not Reportable Hypochromasia Not Reportable Poikilocytosis Not Reportable Anisocytosis 1+ Microcytosis Not Reportable Macrocytosis Not Reportable Spherocytes Not Reportable Pappenheimer Bodies Not Reportable Sickle Cells Not Reportable Target Cells Not Reportable Tear Drop Cells Not Reportable Ovalocytes Not Reportable Helmet Cells Not Reportable Heart-Keizer Bodies Not Reportable [place] Rings Not Reportable [place] Cells Not Reportable Bite Cells Not Reportable Crenated Cell Not Reportable Elliptocytes Not Reportable Acanthocytes (Spur) Not Reportable Rouleaux Not Reportable Hemoglobin C Crystals Not Reportable Schistocytes Not Reportable Malaria parasites Not Reportable Maximiliano Bodies Not Reportable Hem Pathologist Commnt No Sodium 139 Potassium 4.2 Chloride 98.6 Carbon Dioxide 28 Anion Gap 17 BUN 10 Creatinine 0.8 Estimated GFR > 60 BUN/Creatinine Ratio 13 Glucose 107 H Calcium 9.8 Total Bilirubin < 0.20 AST 17 ALT 18 Alkaline Phosphatase 90 Total Protein 7.5 Albumin 4.5 Albumin/Globulin Ratio 1.5 Lipase 50 Urine Color Urine Turbidity Urine pH Ur Specific [place] Urine Protein Urine Glucose (UA) Urine Ketones Urine Blood Urine Nitrite Urine Bilirubin Urine Urobilinogen Ur Leukocyte Esterase Urine WBC (Auto) Urine RBC (Auto) U Epithel Cells (Auto) Urine Bacteria (Auto) Urine Mucus 02/25/18 07:21 WBC RBC Hgb Hct MCV MCH MCHC RDW Plt Count Lymph % (Auto) Add Manual Diff Total Counted Seg Neutrophils % Seg Neuts % (Manual) Band Neutrophils % Lymphocytes % (Manual) Reactive Lymphs % (Man) Monocytes % (Manual) Eosinophils % (Manual) Basophils % (Manual) Metamyelocytes % Myelocytes % Promyelocytes % Blast Cells % Nucleated RBC % Seg Neutrophils # Man Band Neutrophils # Lymphocytes # (Manual) Abs React Lymphs (Man) Monocytes # (Manual) Eosinophils # (Manual) Basophils # (Manual) Metamyelocytes # Myelocytes # Promyelocytes # Blast Cells # WBC Morphology Hypersegmented Neuts Hyposegmented Neuts Hypogranular Neuts Smudge Cells Toxic Granulation Toxic Vacuolation Dohle Bodies Pelger-Huet Anomaly Galo Rods Platelet Estimate Clumped Platelets Plt Clumps, EDTA Large Platelets Giant Platelets Platelet Satelliting Plt Morphology Comment RBC Morphology Dimorphic RBCs Polychromasia Hypochromasia Poikilocytosis Anisocytosis Microcytosis Macrocytosis Spherocytes Pappenheimer Bodies Sickle Cells Target Cells Tear Drop Cells Ovalocytes Helmet Cells Heart-Keizer Bodies [place] Rings [place] Cells Bite Cells Crenated Cell Elliptocytes Acanthocytes (Spur) Rouleaux Hemoglobin C Crystals Schistocytes Malaria parasites Maximiliano Bodies Hem Pathologist Commnt Sodium Potassium Chloride Carbon Dioxide Anion Gap BUN Creatinine Estimated GFR BUN/Creatinine Ratio Glucose Calcium Total Bilirubin AST ALT Alkaline Phosphatase Total Protein Albumin Albumin/Globulin Ratio Lipase Urine Color Yellow Urine Turbidity Clear Urine pH 5.0 Ur Specific [place] 1.012 Urine Protein <15 mg/dl Urine Glucose (UA) Neg Urine Ketones Neg Urine Blood Neg Urine Nitrite Neg Urine Bilirubin Neg Urine Urobilinogen < 2.0 Ur Leukocyte Esterase Tr Urine WBC (Auto) 2.0 Urine RBC (Auto) 4.0 U Epithel Cells (Auto) 5.0 Urine Bacteria (Auto) 1+ Urine Mucus Few - Radiology Data Radiology results: report reviewed (acute abdominal series x-ray), image reviewed (acute abdominal series x-ray) interpreted by me: Acute abdominal series x-ray-no free air - Differential Diagnosis acute pancreatitis, gastritis, peptic ulcer disease Critical care attestation.: If time is entered above; I have spent that time in minutes in the direct care of this critically ill patient, excluding procedure time. ED Disposition Clinical Impression: Acute abdominal pain, Chronic pancreatitis Disposition: TO HOME OR SELFCARE Is pt being admited?: No Does the pt Need Aspirin: No Condition: Stable Instructions: Abdominal Pain (ED), Pancreatitis (ED) Additional Instructions: Return to the emergency department immediately should you develop worsening symptoms, fever, inability to tolerate food or liquid or any other concerns. Prescriptions: Famotidine [Pepcid] 20 mg PO BID #20 tablet HYDROcodone/APAP 5-325 [[place] 5/325] 1 - 2 each PO Q6HR PRN #14 tablet PRN Reason: Pain Promethazine [Phenergan TAB] 25 mg PO Q6HR PRN #20 tab PRN Reason: Nausea Promethazine [Phenergan] 25 mg FL Q6HR PRN #5 supp.rect PRN Reason: Vomiting Referrals: RYLEY ZHENG MD [Primary Care Provider] - 3-[address] Ray, marilee psychiatric assistant [Other] - [facility] Time of Disposition: 11:00
--- NOTE | 2018-02-25 10:49 | XRay Report ---
ABDOMINAL SERIES INDICATION: Abdominal pain. COMPARISON: 02/20/2018 CT. FINDINGS: Abdominal series, 4 radiographs, demonstrate nonobstructive bowel gas pattern without focal suspicious calcifications, pneumatosis or pneumoperitoneum. Ascending and transverse colon stool/possible constipation. Accompanying chest radiograph demonstrates borderline/slight cardiomegaly. Normal mediastinal and hilar contours. Clear lungs. EKG leads. Unremarkable bones. CONCLUSION: No acute abdominal radiographic abnormality, as described. Thank you for the opportunity to participate in this patient's care.
[2018-02-25] MEDS ORDERED: REGLAN IV ONE (10:56)
[2018-02-25] MEDS ORDERED: NORCO 5/325 PO ONE (10:57)
== END 2018-02-25 11:26 | disposition home or self-care (01) ==
LOC: ED 06:40
DX: K86.1 Other chronic pancreatitis (principal); I10 Essential (primary) hypertension; E11.9 Type 2 diabetes mellitus without complications; F31.9 Bipolar disorder, unspecified; F41.9 Anxiety disorder, unspecified; F17.200 Nicotine dependence, unspecified, uncomplicated; K21.9 Gastro-esophageal reflux disease without esophagitis; Z87.442 Personal history of urinary calculi
CPT/HCPCS: 36415; 74022; 80053; 81001; 83690; 85007; 85025; 96361; 96374; 96375; 99284; J2765; J3010

== ENCOUNTER 2018-04-30 18:15 | Emergency (ER) | payer MEDICARE ==
[2018-04-30] MEDS ORDERED: ASPIRIN PO ONE (18:28)
[2018-04-30 19:14] LABS: Basophils # (Auto) 0.1 K/mm3 (0.0-0.1); Basophils % (Auto) 1.5 % (0.0-1.8); Eosinophils # (Auto) 0.1 K/mm3 (0.0-0.4); Eosinophils % (Auto) 2.2 % (0.0-4.3); Hematocrit 45.4 % (30.3-42.9); Hemoglobin 15.4 gm/dl (10.1-14.3); Lymphocytes # (Auto) 2.8 K/mm3 (1.2-5.4); Lymphocytes % (Auto) 49.6 % (13.4-35.0); Mean Corpuscular HGB Conc 34 % (30-34); Mean Corpuscular Hemoglobin 32 pg (28-32); Mean Corpuscular Volume 93 fl (79-97); Monocytes # (Auto) 0.3 K/mm3 (0.0-0.8); Platelet Count 373 K/mm3 (140-440); Red Blood Count 4.86 M/mm3 (3.65-5.03); Red Cell Distribution Width 14.4 % (13.2-15.2)
[2018-04-30 19:30] LABS: BUN/Creatinine Ratio 10; Blood Urea Nitrogen 8 mg/dL (7-17); Calcium 9.6 mg/dL (8.4-10.2); Hemolysis Index 21
[2018-04-30] MEDS ORDERED: ZOFRAN IV ONE (20:59)
[2018-04-30] MEDS ORDERED: NACL 0.9% 1000 ML 1,000 ML IV ONE (21:19)
[2018-04-30 21:26] LABS: Alanine Aminotransferase 13 units/L (7-56); Albumin 4.8 g/dL (3.9-5)
[2018-04-30 21:27] LABS: Bilirubin,Direct < 0.2 mg/dL (0-0.2)
--- NOTE | 2018-04-30 21:41 | Emergency Department Report ---
HPI - General Chief Complaint: Abdominal Pain Time Seen by Provider: 04/30/18 20:17 - HPI HPI: 33-year-old female presents to the emergency department with complaint of some upper abdominal pain and some radiation towards the lower chest that she believes may be a flareup of her previous pancreatitis. Patient used to be a heavy drinker and had some recurrent pancreatitis but she denies any recent drinking. She also has a past history of bno-[id number] diabetes, GERD, hypertension, bipolar disorder and anxiety. She took some Advil for her discomfort without much relief. It is associated with some nausea and vomiting but she denies any fever, dysuria, vaginal bleeding or discharge. No recent travel or sick contacts at home. Her primary care physician is Dr. Ryley Teresa. ED Past Medical Hx - Past Medical History Previous Medical History?: Yes Hx Hypertension: Yes Hx Diabetes: Yes (NIDDM) Hx GERD: Yes Hx Seizures: Yes Hx Kidney Stones: Yes Hx Psychiatric Treatment: Yes (BiPolar, Anxiety, Depression) Additional medical history: pancreatitis - Surgical History Past Surgical History?: Yes Additional Surgical History: pin and screw L 5th digit, L ectopic 2015 , D&C - Social History Smoking Status: Current Every Day Smoker Substance Use Type: Prescribed - Medications Home Medications: Home Medications Medication Instructions Recorded Confirmed Last Taken Type ALPRAZolam [Xanax TAB] 1 mg PO TID PRN 08/14/17 08/14/17 08/13/17 History Amitriptyline [Elavil] 100 mg PO HS 08/14/17 08/14/17 08/11/17 History Duloxetine HCl [Cymbalta] 60 mg PO QAM 08/14/17 08/14/17 08/13/17 History Lurasidone HCl [Latuda] 80 mg PO HS 08/14/17 08/14/17 08/13/17 History Phenytoin [Dilantin] 100 mg PO TID 08/14/17 08/14/17 08/13/17 History Topiramate [Topamax] 100 mg PO BID 08/14/17 08/14/17 08/13/17 History lamoTRIgine [LaMICtal] 150 mg PO BID 08/14/17 08/14/17 08/13/17 History metFORMIN XR [Glucophage XR] 500 mg PO BID 08/14/17 08/14/17 08/13/17 History Cephalexin [Keflex] 500 mg PO Q12HR #14 cap 02/20/18 Unknown Rx Dicyclomine [Bentyl] 10 mg PO QID #30 capsule 02/20/18 Unknown Rx Famotidine [Pepcid] 20 mg PO BID #20 tablet 02/25/18 Unknown Rx Promethazine [Phenergan TAB] 25 mg PO Q6HR PRN #20 tab 02/25/18 Unknown Rx Promethazine [Phenergan] 25 mg [place] Q6HR PRN #5 supp.rect 02/25/18 Unknown Rx HYDROcodone/APAP 5-325 [[place] 1 each PO Q8H PRN #6 tablet 05/01/18 Unknown Rx 5-325 mg TAB] ED Review of Systems ROS: Stated complaint: PACREATITIS FLARE UP/CHEST PAIN Other details as noted in HPI Comment: All other systems reviewed and negative Constitutional: denies: chills, fever Eyes: denies: eye pain, eye discharge, vision change ENT: denies: ear pain, throat pain Respiratory: denies: cough, shortness of breath, wheezing Cardiovascular: chest pain. denies: palpitations Gastrointestinal: abdominal pain, nausea, vomiting Genitourinary: denies: urgency, dysuria, discharge Musculoskeletal: denies: back pain, joint swelling, arthralgia Skin: denies: rash, lesions Neurological: denies: headache, weakness, paresthesias Physical Exam - Physical Exam Vital Signs: Vital Signs 04/30/18 04/30/18 04/30/18 18:22 20:17 20:30 Temperature 98.4 F Pulse Rate 120 H 113 H 108 H Respiratory 22 20 34 H Rate Blood Pressure 170/120 149/112 O2 Sat by Pulse 100 100 Oximetry 04/30/18 21:10 Temperature Pulse Rate Respiratory 18 Rate Blood Pressure O2 Sat by Pulse Oximetry Physical Exam: GENERAL: The patient is well-developed well-nourished. HENT: Normocephalic. Atraumatic. Patient has moist mucous membranes. EYES: Extraocular motions are intact. Pupils equal reactive to light bilaterally. NECK: Supple. Trachea is midline. CHEST/LUNGS: Clear to auscultation. There is no respiratory distress noted. HEART/CARDIOVASCULAR: Regular. There is mild tachycardia. There is no murmur. ABDOMEN: Abdomen is soft. Upper abdominal tenderness to palpation. Patient has normal bowel sounds. There is no abdominal distention. SKIN: Skin is warm and dry. NEURO: The patient is awake, alert, and oriented. The patient is cooperative. The patient has no focal neurologic deficits. The patient has normal speech. MUSCULOSKELETAL: There is no tenderness or deformity. There is no limitation range of motion. There is no evidence of acute injury. ED Course Vital Signs 04/30/18 04/30/18 04/30/18 18:22 20:17 20:30 Temperature 98.4 F Pulse Rate 120 H 113 H 108 H Respiratory 22 20 34 H Rate Blood Pressure 170/120 149/112 O2 Sat by Pulse 100 100 Oximetry 04/30/18 21:10 Temperature Pulse Rate Respiratory 18 Rate Blood Pressure O2 Sat by Pulse Oximetry ED Medical Decision Making - Lab Data Result diagrams: 04/30/18 18:37 04/30/18 18:37 - EKG Data -: EKG Interpreted by Nd EKG shows normal: sinus rhythm, axis, intervals, QRS complexes, ST-T waves Rate: tachycardia (108 bpm) - EKG Data When compared to previous EKG there are: previous EKG unavailable Interpretation: normal EKG (with mild tachycardia) - Radiology Data Radiology results: report reviewed Ultrasound of the abdomen shows a cystic region in the left lobe of the liver that measures up to 20 mm. Gallbladder is normal. Common bile duct measures 4 mm. - Medical Decision Making Patient presents with some upper abdominal pain that she believes is an exacerbation of her chronic pancreatitis. Labs are mostly unremarkable. There is no elevation in the bilirubin, lipase or LFTs. She does have some signs of a urinary tract infection on the urinalysis but the patient says that she is currently taking Cipro for a previously diagnosed UTI. Chest and abdominal x- ray do not show any acute process. Abdominal ultrasound shows a liver cyst but otherwise there is no signs of any gallstones, biliary obstruction or any other acute processes. She was given some pain medication and IV fluid. Vital signs were stable throughout her ED course but her tachycardia improved prior to discharge. While the ultrasound did not specifically mention the pancreas, the lipase level was normal. The patient said that the pain in her abdomen felt like sometimes radiate towards the chest. For this reason she was checked out with an EKG that did not show any signs of any ST elevation VA, ischemia or dysrhythmia. Labs all showed negative troponins 2. She presented for discharge home at this time. She has been given referrals for gastroenterology and encouraged to follow up with her primary care physician. She was instructed to return to the emergency Department with any worsening of her symptoms or any acute distress. - Differential Diagnosis gastritis, pancreatitis, VA, cholelithiasis, cholecystitis Critical Care Time: No Critical care attestation.: If time is entered above; I have spent that time in minutes in the direct care of this critically ill patient, excluding procedure time. ED Disposition Clinical Impression: Liver cyst Abdominal pain Qualifiers: Abdominal location: upper abdomen, unspecified Qualified Code(s): R10.10 - Upper abdominal pain, unspecified UTI (urinary tract infection) Qualifiers: Urinary tract infection type: acute cystitis Hematuria presence: without hematuria Qualified Code(s): N30.00 - Acute cystitis without hematuria Disposition: TO HOME OR SELFCARE Is pt being admited?: No Condition: Stable Instructions: Abdominal Pain (ED) Additional Instructions: Please follow-up with your primary care physician in the next few days. I have given her a referral for a local youth minister, Dr. Carter, to follow up regarding your recurrent abdominal pain and the liver cysts seen on ultrasound. Return to the emergency Department with any worsening of your symptoms or any acute distress. You have been prescribed a medication that is sedating and therefore should not be taken prior to driving, working, and responsible for children and in no way should be mixed with alcohol of any quantity. Prescriptions: HYDROcodone/APAP 5-325 [[place] 5-325 mg TAB] 1 each PO Q8H PRN #6 tablet PRN Reason: Pain Referrals: RYLEY ZHENG MD [Referring] - TON TAVARES MD [Staff Physician] - 2-3 Days Time of Disposition:
[2018-04-30] MEDS ORDERED: MORPHINE IV ONE (22:02)
--- NOTE | 2018-04-30 23:59 | XRay Report ---
FINAL REPORT PROCEDURE: XR ABD SERIES W CXR 1V TECHNIQUE: Abdominal series complete, including supine and upright AP views of the abdomen and frontal chest. HISTORY: abd and CP COMPARISON: No prior studies are available for comparison. FINDINGS: Heart: Normal. Mediastinum/Vessels: Normal. Lungs/Pleural space: Normal. Bowel gas pattern: Nonobstructive. Masses or calcifications: None. Bony structures: No acute osseous abnormality. Other: No free intraperitoneal air. IMPRESSION: No acute abnormality.
[2018-05-01 00:05] LABS: Bacteria,Urine 1+ /HPF (Negative); Bilirubin,Urine NEG (Negative); Blood,Urine NEG (Negative); Color,Urine Yellow (Yellow); Mucus,Urine FEW /HPF; Protein,Urine <15 mg/dL mg/dL (Negative); Urobilinogen,Urine < 2.0 mg/dL (<2.0)
[2018-05-01] MEDS ORDERED: MACROBID PO ONE (00:36)
[2018-05-01] MEDS ORDERED: MORPHINE IV ONE (00:47)
[2018-05-01] MEDS ORDERED: NACL 0.9% 1000 ML 1,000 ML IV ONE (00:56)
[2018-05-01 01:47] VITALS: BP 143/88
--- NOTE | 2018-05-01 01:58 | Ultrasound Report ---
FINAL REPORT PROCEDURE: US ABDOMEN LIMITED TECHNIQUE: Real-time sonography was performed of the liver with image documentation. CPT 42289 HISTORY: upper abd pain COMPARISON: No prior studies are available for comparison. FINDINGS: The liver size is normal. There is a hypoechoic region in the left lobe of the liver this measures 20 x 18 x 18 millimeters. This appears to correspond to the area seen on the patient's computerized tomography. A small cyst in this region is suspected. There is a slightly echogenic region in the mid right lobe of the liver which is most likely a vascular region. The gallbladder is normal. Common bile duct measures 4 millimeters. The portion of the kidney imaged is normal.. IMPRESSION: Cystic region in the left lobe of the liver is noted this measures up to 20 millimeters.
== END 2018-05-01 01:49 | disposition home or self-care (01) ==
LOC: ED 18:15
DX: K76.89 Other specified diseases of liver (principal); N39.0 Urinary tract infection, site not specified; I10 Essential (primary) hypertension; E11.9 Type 2 diabetes mellitus without complications; K21.9 Gastro-esophageal reflux disease without esophagitis; F17.200 Nicotine dependence, unspecified, uncomplicated
CPT/HCPCS: 36415; 74022; 76705; 80048; 80074; 81001; 83690; 84484; 85025; 93005; 93010; 96361; 96374; 96375; 96376; 99285; J2270; J2405; J7030

== ENCOUNTER 2018-06-02 11:00 | Outpatient (CLI) | payer MEDICARE | END 2018-06-02 11:01 | disposition home or self-care (01) | LOC: SLR 11:00 | PROVIDERS: ATTEND Otolaryngology | DX: G47.31 Primary central sleep apnea (principal); I10 Essential (primary) hypertension; F32.9 Major depressive disorder, single episode, unspecified; F41.9 Anxiety disorder, unspecified; F17.219 Nicotine dependence, cigarettes, with unspecified nicotine-induced disorders; Z88.8 Allergy status to other drugs, medicaments and biological substances | CPT/HCPCS: 95810 ==

== ENCOUNTER 2018-06-15 11:00 | Outpatient (CLI) | payer MEDICARE | END 2018-06-15 11:01 | disposition home or self-care (01) | LOC: SLR 11:00 | PROVIDERS: ATTEND Otolaryngology | DX: G47.33 Obstructive sleep apnea (adult) (pediatric) (principal); F17.210 Nicotine dependence, cigarettes, uncomplicated; Z88.6 Allergy status to analgesic agent | CPT/HCPCS: 95811 ==

== ENCOUNTER 2019-02-16 06:02 | Day surgery (SDC) | payer MEDICARE ==
[2019-02-16] MEDS ORDERED: WATER FOR IRRIG STERILE IR ONE (07:10)
--- NOTE | 2019-02-16 07:30 | Anesthesia Consultation ---
Anesthesia Consult and Med Hx - Airway Anesthetic Teeth Evaluation: Partials ROM Head & Neck: Adequate Mental/Hyoid Distance: Adequate - Pulmonary Exam CTA: Yes - Cardiac Exam Cardiac Exam: No Murmur - Pre-Operative Health Status ASA Pre-Surgery Classification: ASA3 Proposed Anesthetic Plan: MAC - Pulmonary Hx Sleep Apnea: Yes - Cardiovascular System Hx Hypertension: Yes - Central Nervous System Hx Seizures: Yes
--- NOTE | 2019-02-16 07:32 | Anesthesia Day of Surgery ---
Anesthesia Day of Surgery - Day of Surgery Patient Examined: Yes Patient H&P Reviewed: Yes Patient is NPO: Yes Beta Blockers: No
[2019-02-16] MEDS ORDERED: DIPRIVAN 10 MG/ML IV ONE (07:38)
[2019-02-16] MEDS ORDERED: VERSED ONE (07:38)
[2019-02-16] MEDS ORDERED: NACL 0.9% 1000 ML 1,000 ML IV SCH (08:00)
[2019-02-16] MEDS ORDERED: WATER FOR IRRIG STERILE ONE (08:25)
[2019-02-16 09:03] VITALS: BP 144/95
--- NOTE | 2019-02-16 10:01 | Operative Report ---
PREOPERATIVE DIAGNOSIS: Morbid obesity. POSTOPERATIVE DIAGNOSIS: Small hiatal hernia. PROCEDURE: EGD. COMPLICATIONS: None. SPECIMENS: None. BLEEDING: None. INDICATIONS: The patient is a 34-year-old female with a history of morbid obesity. She is here for preoperative EGD. Informed consent was obtained. DESCRIPTION OF PROCEDURE: The patient was brought to the operating GI suite where she was placed in left lateral position and underwent MAC anesthesia. A bite block was placed. A timeout was called. A standard adult gastroscope was then inserted into the oropharynx, down the esophagus, into the stomach and first portion of the duodenum. On retroflexion view, she was noted to have a small hiatal hernia. There were no other abnormalities up to the level of D1. With this, the air was desufflated and gastroscope was removed. The patient tolerated the procedure well and was transferred to the PACU in stable condition. [facility]# [id number] MARCELO/DEANN
== END 2019-02-16 06:03 | disposition home or self-care (01) ==
LOC: GIO 06:02
PROVIDERS: ATTEND Specialist
DX: K30 Functional dyspepsia (principal); K44.9 Diaphragmatic hernia without obstruction or gangrene; E66.01 Morbid (severe) obesity due to excess calories; I11.0 Hypertensive heart disease with heart failure; I50.9 Heart failure, unspecified; G47.30 Sleep apnea, unspecified; K21.9 Gastro-esophageal reflux disease without esophagitis; F17.210 Nicotine dependence, cigarettes, uncomplicated; Z87.442 Personal history of urinary calculi; Z79.899 Other long term (current) drug therapy; Z88.8 Allergy status to other drugs, medicaments and biological substances
CPT/HCPCS: 43235; J2250; J2704; J7030; 81025